=== PATIENT | female | born 1990 | race Caucasian/White ===

== ENCOUNTER 2017-05-07 13:44 | Observation (INO) | payer OTHER ==
[2017-05-07] MEDS ORDERED: PROMETRIUM200 MG (14:18)
--- NOTE | 2017-05-07 16:20 | NUR ---
05/07/17 1620 Zonia Ornelas 1606 PT ARRIVED IN PACU WITH ORAL AIRWAY IN PLACE. REPORT FROM ANESTHESIA. 1610 ORAL AIRWAY REMOVED. PT TALKING TO STAFF. AT BEDSIDE.
--- NOTE | 2017-05-08 18:04 | OR ---
[facility] [address] [place] [address] Signed DATE OF OPERATION: 05/07/2017 SURGEON: Toney Beck MD PREOPERATIVE DIAGNOSIS: Incompetent cervix with bulging membranes. POSTOPERATIVE DIAGNOSIS: Incompetent cervix with bulging membranes. PROCEDURE: Cerclage, Zack type. PETROLEUM ENGINEERING PROFESSOR: Dr. Vallecillo. ANESTHESIA: General. ESTIMATED BLOOD LOSS: 10 mL. COMPLICATIONS: None. DRAINS: Elias to bladder. FINDINGS: Cervix 4 cm, soft with bulging membranes. Coming from the os. Normal vagina. No discharge. No bleeding. DESCRIPTION OF PROCEDURE: The patient was brought to the operating room, placed supine position. Attempt was made for spinal anesthesia, but could not be adequately done, so general anesthesia was obtained, the patient was then placed in the dorsal lithotomy position. Prepped and draped in usual sterile fashion except no vaginal prep . Elias catheter was placed in the bladder and the bladder filled with 250 mL of sterile water to help elevate the lower segment and hopefully elevate the membranes back in. The patient was placed in Trendelenburg to Electronically Signed By: TONEY BECK MD 05/08/17 1804 PATIENT NAME: DONNA CAMEJO OPERATIVE REPORT DATE OF : [birth year] REPORT #: [id number] PHYSICIAN: TONEY BECK MD PCP: TONEY BECK MD REPORT IS CONFIDENTIAL AND NOT TO BE RELEASED WITHOUT AUTHORIZATION [facility] [address] [place], [place] [address] Signed also help drop the bulging membranes in back up through the cervix. Weighted speculum was placed in the vagina and the anterior lip of the cervix was carefully grasped with a ring forceps. The cervix was grasped at 3 o'clock and 9 o'clock with a ring forceps and finally the posterior lip of the cervix could be seen and this was grasped with a ring forceps. There was still some membranes at the external os. So, a Elias catheter was very gently pushed through the cervix and the balloon inflated and this seem to hold the membranes up out of the way so that the cervix could be identified. The vagina was quite narrow, so the large needle of the Mersilene tape could not be brought in to the cervix, so a smaller Loose needle was used in the large needles cut off the Mersilene tape and passed through the eye of the small curved needle. The cervix was carefully inspected. The Mersilene tape was then placed from 7 o'clock to almost 9 o'clock in the right lower quadrant of the cervix and the tape pulled through after removing the 9 o'clock ring forceps. The tape was pulled through and then additional bite taken from 10 o'clock to 11:00 o'clock. Each bite was taken as far back towards the internal os and the ring forceps removed as needed for visualization. This could be reached with the one end of the tape up near 11 o'clock. The left side was done in similar fashion placing the needle through from 5 o'clock to 3 o'clock, just passed 3 o'clock and then again from 2 o'clock up to 12 o'clock. This side was easier to get closer to the endocervix, so the patient's right side still had a small area of anterior cervix, so the 3rd bite was taken from 11-12 o'clock further up near the internal os and the sutures now meeting near at 12 o'clock. The needles were removed and the suture began to be tightened. Once it was tightened part way the Elias catheter balloon that was in the cervix was deflated and the Elias catheter removed from the cervix, and as this was removed the stitch was tightened further to close the cervix without undue tension. The cervix was observed and noted to have good closure with no membranes present. No leaking fluid. Three additional knots were then placed in the tape to hold the suture in place, in the ends of the tape cut along so that could be identified again. The vagina was then irrigated and carefully examined and noted to have good hemostasis. The cervix did show good closure and appeared to be thicker and there is no bulging or bleeding and no leaking fluid. At this point, all instruments were removed from the vagina. The patient tolerated the procedure well and went to recovery room in good condition. The sponge, needle, and instrument counts were correct at the end of procedure. Toney Beck MD Electronically Signed By: TONEY BECK MD 05/08/17 1804 PATIENT NAME: DONNA CAMEJO OPERATIVE REPORT DATE OF : [birth year] REPORT #: [id number] PHYSICIAN: TONEY BECK MD PCP: TONEY BECK MD REPORT IS CONFIDENTIAL AND NOT TO BE RELEASED WITHOUT AUTHORIZATION [address] [address] Signed [facility]/HANNAH /[id number] Copies: ~ Electronically Signed By: TONEY BECK MD 05/08/17 1804 PATIENT NAME: DONNA CAMEJO OPERATIVE REPORT DATE OF : [birth year] REPORT #: [id number] PHYSICIAN: TONEY BECK MD PCP: TONEY BECK MD REPORT IS CONFIDENTIAL AND NOT TO BE RELEASED WITHOUT AUTHORIZATION
== END 2017-05-08 18:35 | disposition home or self-care (01) ==
LOC: FBCO 13:44 → FBC 14:23
PROVIDERS: ADMIT General Practice
PROC: 0UVC7ZZ Restriction of Cervix, Via Natural or Artificial Opening (ICD-10-PCS; principal; 2017-05-07 14:17)
DX: O34.32 Maternal care for cervical incompetence, second trimester (principal); Z3A.21 21 weeks gestation of pregnancy
CPT/HCPCS: 00948; 76815; 81001; 85027; 87088; 87653; G0378; J0330; J2550; J2704; J2765; J3010

== ENCOUNTER 2017-11-05 06:24 | Inpatient (IN) | payer OTHER ==
[~2017-11-05] VITALS: Ht 170.2 cm; Wt 151.1 kg
[~2017-11-05 06:24] MED LIST: IBUPROFEN600 MG PO; NORCO 5-325 TA1 EACH PO; PAXIL10 MG PO; PROMETRIUM200 MG; ZOFRAN ODT4 MG PO
--- NOTE | 2017-11-05 08:48 | NUR ---
REPORT FROM FREDIS ANDERSEN IN E.D. AT THIS TIME.
--- NOTE | 2017-11-05 09:00 | NUR ---
PT TO ROOM 114 AT THIS TIME. PT ALERT AND ORIENTED CESAR SIGNIFICANT AT BEDSIDE. PT REPORTS NO PAIN OR NAUSEA AT THIS TIME. SHE RECIEVED PAIN AND NAUSEA MEDICATIONS IN E.D. EDUCATION FOLDER PROVIDED
[2017-11-05] MEDS ORDERED: FLUOXETINE HCL40 MG PO (11:29)
[2017-11-05] MEDS ORDERED: LORAZEPAM0.5 MG PO (11:30)
--- NOTE | 2017-11-05 11:36 | NUR ---
PT OFF THE UNIT TO SURGERY AT THIS TIME.
--- NOTE | 2017-11-05 13:33 | NUR ---
11/05/17 Ashely3 Angeli Cardenas 4808-PATIENT ARRIVED TO PACU ON 6L MASK O2 SAT 100% PATIENT REACTIVE TO VOICE DENIES PAIN. DROWSY. RR EVEN. SR. 3 LAP SITES TO ABDOMEN RIA DRAIN SITE COVERED BY HELIOTHERAPIST DRESSING CDI. RIA DRAIN HAS SCANT AMT OF LIGHT SEROUSSANGUINOUS DRAINAGE.
--- NOTE | 2017-11-05 14:10 | NUR ---
PT HAS BEEN TAKEN TO SURGERY. WILL FOLLOW SHE RETURNS
--- NOTE | 2017-11-05 14:39 | NUR ---
PT BACK FROM SURGERY AND WAS ABLE TO SCOOT SELF OVER TO BED. SLIGHTLY NAUSEA AND PAINFUL UPON MOVEMENT. FIANCE IN ROOM. PT ANSWERS QUESTIONS APPROP. VS STABLE. SITES INTACT WITH MINIMAL DRAINAGE IN DRAIN.
--- NOTE | 2017-11-05 15:29 | NUR ---
PT SLEEPING/SNORING OXYGEN SATURATION 99% ON 2L. SIGNIFICANT OTHER AT BEDSIDE.
--- NOTE | 2017-11-05 16:11 | NUR ---
PT UP TO BEDSIDE COMMODE, TOLERATED ACTIVITY WELL. HAD TO RE-ENFORCE RIGHT LUQ LAP SITE WITH GUAZE DUE TO DRAINAGE AT SITE
--- NOTE | 2017-11-05 16:59 | NUR ---
PT TOLERATED PUDDING AND JELLO WITH NO NAUSEA HAS BEEN UP TO VOID TOLERATED WELL. ADMINISTERED 1 TAB PERCOCET PO PRN FOR 5/10 PAIN. SIGNIFICANT OTHER AT BEDSIDE
--- NOTE | 2017-11-05 17:01 | NUR ---
PT HAD LAP EDELMIRA THIS AFTERNOON, HAS RIA DRAIN RUQ DRAINING SMALL AMOUNT OF SS FLUID. LAPS SITES HAVE SMALL AMOUNT OF DRAINAGE ALSO SS. PT TOLERATING PO WELL NOW NO NAUSEA. ADMINISTERED PO PERCOCET 1 TAB. RATES PAIN 5/10 SHE HAS LOW TOLERANCE FOR NARCOTIC MEDICATIONS. HER V/S STABLE. ON ROOM AIR. SCDS ON WHILE IN BED.
--- NOTE | 2017-11-05 17:23 | NUR ---
PT REPORTS PAIN IS TOLERABLE AT THIS TIME
--- NOTE | 2017-11-05 18:20 | NUR ---
PATIENT IN BED WATCHING TV. FAMILY BEDSIDE. FRESHWATER GIVEN. CALL LIGHT IN REACH NO FURTHER NEEDS AT THIS TIME.
--- NOTE | 2017-11-05 18:35 | NUR ---
PT REPORTS PAIN IS TOLERABLE, SHE REPORTS NOT FEELING A LOT OF DIFFERENCE SINCE PERCOCET ADMINISTERED AT 1640. ADMINISTERED 600MG MOTRIN AT THIS TIME PO PRN FOR 5/10 PAIN AT THE ABD POST OP LAP EDELMIRA
--- NOTE | 2017-11-05 19:34 | NUR ---
SHIFT CHANGE REPORT ASSESSMENT OF UMBILICUS INCISION...REOMVED GAUZE DUE TO DRAINAGE STERI STRIPES X2 HAD CAME LOOSE CALLED NOTIFIED THAT RN HAD PLACED NEW STERI STRIPE TO RE-ENFORCE MD SAID OK TO LEAVE OFF IF MORE COME OFF DUE TO DRAINAGE.
--- NOTE | 2017-11-05 19:35 | NUR ---
FINISHING SHIFT REPORT WITH NATHALY CARL. ABD LAP SITES AND LOOK GOOD. RIA DRAINIG SEROSANGUINOUS DRAINAGE, BUT NOT MUCH.
--- NOTE | 2017-11-05 20:03 | NUR ---
1PA SBA TO THE BATHROOM AND BACK TO BED. PATIENT STATED DID NOT NEED OF ANYTHING ELSE AT THIS MOMENT.
--- NOTE | 2017-11-05 21:36 | NUR ---
ROUNDED CHARGE. PATIENT IS RESTING IN BED WATCHING TV. FIANCE AT THE BEDSIDE. PATIENT DENIES ANY PAIN OR NAUSEA. NO COMMENTS, QUESTIONS, OR CONCERNS. NO NEEDS NOTED. CALL LIGHT IN REACH.
--- NOTE | 2017-11-05 22:54 | NUR ---
PATIENT STARTING TO HAVE 6 OF 10 ABD PAIN AND WAS GIVEN 2 7.5/325MG PERCOCET. PATIENT AMBULATING FINE TO THE REST ROOM. IV PATENT AND RUNNING WELL. BOWEL TONES HYPOACTIVE, BUT LUNGS CLEAR.
--- NOTE | 2017-11-06 00:08 | NUR ---
PATIENT GIVEN 600MG IBUPROFEN FOR 7/10 OF RIGHT ABD PAIN NEAR THE RIA SITE. WARM PACK APPLIED AND PATIENT FEELING BETTER AT THIS TIME. SIGNIFICANT OTHER PRESENT SLEEPING ON THE SOFA.
--- NOTE | 2017-11-06 02:06 | NUR ---
CHECKED ON PATIET PAIN IS MUCH DECREASED AFTER WARMTH AND MOTRIN GIVEN. 2/10 PAIN, LIKE STOMACH CRAMMPS EXPLAINED BY PATIENT. STILL DRIED BLOOD AROUND RIA DRESSING SITE, BUT NOTHING NEW. IV STILL INFUSING WNL AND PATIENT WAS ABLE TO GET SOME SLEEP.
--- NOTE | 2017-11-06 07:36 | NUR ---
REPORT RECEIVED FROM NATHALY SOLIS. PT AND ABHILASH AWAKE AND HOPING TO GO HOME THIS MORNING. PAIN WELL CONTROLLED. LAP SITES DRY AND CRUSTY. RIA SITE REINFORCED BUT APPEARS TO HAVE ONLY DRIED BLOOD. MINIMAL DRAINAGE IN DRAIN. PT REPORTS PASSING GAS.
--- NOTE | 2017-11-06 08:13 | NUR ---
PT ASKED IF SHE COULD LEAVE THE SCDS OFF FOR A BIT THEY ARE ITCHING AND SHE IS UP WALKING AROUND THE ROOM. ALSO WANTED TO BE SL FOR CLEANING UP IN THE RESTROOM. BOTH OFF FOR NOW. PT DENIES FURTHER CONCERNS.
--- NOTE | 2017-11-06 09:19 | NUR ---
pt is sitting up in chair, family is here with her. pt has no needs at this time. call light within reach.
--- NOTE | 2017-11-06 09:27 | OR ---
[facility] [address], [place] [address] Signed DATE OF OPERATION: 11/05/2017 SURGEON: Luis Gonsales MD PREOPERATIVE DIAGNOSES: 1. Acute calculous cholecystitis. 2. Morbid obesity. BMI 52.2. POSTOPERATIVE DIAGNOSES: 1. Acute calculous cholecystitis. 2. Morbid obesity. BMI 52.2. PROCEDURE: 1. Laparoscopic cholecystectomy with intraoperative cholangiogram, prolonged, complicated, difficult. 2. Surgeon-directed fluoroscopy. ANESTHESIA: General endotracheal. ANESTHESIOLOGIST: Yadi Clement CRNA and local 20 mL of Marcaine, 0.25% with epinephrine. INDICATION: This 26-year-old, morbidly obese person was seen in the emergency room early this morning following a recurrent bout of right upper abdominal pain. She was thoroughly evaluated by Dr. Bullard, and found to have elevated white count to 13.2. Two liver enzymes were elevated and abdominal tenderness in the right subcostal area. She had been seen on the [address] Davila in the emergency room for similar symptoms, which seem to resolve somewhat promptly and an ultrasound at that time confirmed the findings of a gallbladder with stones. There was also incidentally noted to be a probable hemangioma of the right lobe of the liver. Given her recurrent symptoms, ongoing tenderness, elevated white count, and so forth she has acute cholecystitis, calculous type, and therefore, has been admitted for further evaluation and treatment. She has been fluid resuscitated, given intravenous antibiotics, and other measures and is to undergo prompt cholecystectomy at this time. She understands as does her fiance, Electronically Signed By: LUIS GONSALES MD 11/06/17 0927 PATIENT NAME: DONNA CAMEJO OPERATIVE REPORT DATE OF : [birth year] REPORT #: [id number] PHYSICIAN: LUIS GONSALES MD PCP: TIM LEE DO REPORT IS CONFIDENTIAL AND NOT TO BE RELEASED WITHOUT AUTHORIZATION [facility] [address], [place] [address] [address] Mr. Fuentes, the risk of bleeding, infection, bile duct injury, bile leak, need for open procedure, need for common duct exploration and other unforeseen complications and wished to proceed. FINDINGS: She was quite morbidly obese, which made the operation prolonged, complicated, and difficult, but it was accomplished safely in a laparoscopic approach. The gallbladder was inflamed with omental adhesions to its undersurface. Intraoperative cholangiography showed no sign of filling defect or other abnormality. The cystic duct was reasonably generous in length. The gallbladder once opened showed multiple small yellow gallstones. The liver had mild fatty infiltration. There were no other findings of concern. DESCRIPTION OF PROCEDURE: The patient was brought to the operating room, given a general endotracheal anesthetic. Preoperative antibiotic Ancef was given. Sequential compression device stockings used and heparin subcutaneously administered. The abdomen was prepared with chlorhexidine solution after safe general endotracheal anesthesia was induced. An infraumbilical incision was made using an open Mark cannula technique the abdomen was entered without problem though she had a very thick abdominal wall pannus. Pneumoperitoneum was achieved to a level of 14 mmHg of carbon dioxide gas. Intraabdominal inspection showed no sign of ascites, or carcinomatosis. The liver is fatty, infiltrated, and the gallbladder was obscured by omentum over the right lobe of the liver. There was no visible hemangioma of the liver notably. Three additional trocars were placed in usual configuration in the subxiphoid, right midclavicular, and right anterior axillary line. This allowed for unfurling of the omentum revealing the underlying subacutely inflamed gallbladder. The gallbladder was elevated, and omental adhesions to it were taken down with blunt electrocautery dissection. Sequential elevation of the liver was ultimately accomplished allowing for further dissection in the infundibulum. The infundibulum was grasped, and elevated, and using blunt electrocautery dissection the triangle of Calot was dissected free. With meticulous care, the cystic duct was fully identified. A small cystic arterial branch was clipped and subsequently divided. Ultimately, a clip was applied across gallbladder cystic duct junction and a transverse choledochotomy made in the cystic duct. Retrograde milking of the cystic duct showed clear bile. Using an Canseco type cholangiocatheter, intraoperative cholangiography was undertaken showing free flow of contrast into the biliary tree with prompt emptying into the duodenum. There was no sign of biliary anomaly, filling defect or other abnormality. Electronically Signed By: LUIS GONSALES MD 11/06/17 0927 PATIENT NAME: DONNA CAMEJO OPERATIVE REPORT DATE OF : [birth year] REPORT #: [id number] PHYSICIAN: LUIS GONSALES MD PCP: TIM LEE DO REPORT IS CONFIDENTIAL AND NOT TO BE RELEASED WITHOUT AUTHORIZATION [facility] [address] [place] [id number] Signed Catheter was removed. The cystic duct was clipped with three clips. The cystic duct remnant was transected and the gallbladder was then dissected free in a retrograde fashion. A few clips were used to small subvesical arterial branches. The gallbladder was placed in an endobag and extracted through the infraumbilical port site opened on the back table by the circulating nurse, and found to have chronic and subacute inflammatory changes with small yellow gallstones. Irrigation was undertaken in subhepatic space. There was no sign of bile leak, or ongoing bleeding, but to be on the safe side given her obesity and so forth, a 7 mm flat Celestine drain was placed in the subhepatic space. This was placed under direct visualization of course. It was secured to the skin with nylon suture and brought out through inferior right-sided 5 mm trocar site port. The trocars were removed under direct visualization showing no sign of bleeding. The infraumbilical fascial incision was closed with multiple interrupted 0 Vicryl sutures. A 20 mL of 0.25% Marcaine with epinephrine was injected locally for postoperative analgesic benefit. Irrigation was undertaken. Incision and skin closed with interrupted 3-0 Vicryl. Steri-Strips were applied. The patient was ultimately extubated and transferred to recovery room in good condition having suffered no complication. The operation was rather prolonged, complicated, difficult based on her morbid obesity. It was accomplished safely. MD JENN Lopez/DENILSON /[id number] cc: Tim Lee DO [facility] Shelton Bullard MD Electronically Signed By: LUIS GONSALES MD 11/06/17 0927 PATIENT NAME: DONNA CAMEJO OPERATIVE REPORT DATE OF : [birth year] REPORT #: [id number] PHYSICIAN: LUIS GONSALES MD PCP: TIM LEE DO REPORT IS CONFIDENTIAL AND NOT TO BE RELEASED WITHOUT AUTHORIZATION [facility] [address], [place] [address] Signed Copies: TIM LEE PHONG POWELL, WILLIAM S MD ~ Electronically Signed By: LUIS GONSALES MD 11/06/17 0927 PATIENT NAME: DONNA CAMEJO OPERATIVE REPORT DATE OF : [birth year] REPORT #: [id number] PHYSICIAN: LUIS GONSALES MD PCP: TIM LEE DO REPORT IS CONFIDENTIAL AND NOT TO BE RELEASED WITHOUT AUTHORIZATION
--- NOTE | 2017-11-06 09:27 | HP ---
[facility] [address] [place], [place] [address] Signed ADMISSION DATE: 11/05/2017 REASON FOR ADMISSION: Acute calculous cholecystitis. HISTORY: This morbidly obese 151.05 kg, BMI 52.2, white woman presented to the emergency room for the second time this morning and evaluated by Dr. Pandey for right upper abdominal pain, radiating into the posterior subscapular area. She had been seen in the emergency room on the 28 of October and evaluated by Dr. Black. At that time, she was thought to have biliary colic and a gallbladder ultrasound at that time showed gallstones. Liver enzymes and CBC and so forth said to be normal. Since that time, she had been advised to align herself with a primary care provider to arrange for a surgical referral. She was put on a wait list [facility] from what I gather. The patient has seen Dr. Lee in the past, it is noted. He has treated her for anemia with iron replacement therapy. Source of anemia was never known. Her evaluation today shows a change of situation in that she had nausea and vomiting associated with right upper abdominal pain. Her white count was elevated to 13.9, hematocrit 41.7, and platelets 236,000. Chem profile essentially normal. The glucose elevated at 153. AST is elevated to 86, ALT 270, alkaline phosphatase normal at 108, and bilirubin normal at 0.6. Beta-hCG was negative. Her last menstrual period was in May. PAST MEDICAL HISTORY: Does include uterine incompetence during , requiring emergency cerclage and subsequent spontaneous delivery of a nonviable fetus of 23 weeks. She was managed at that time by Dr. Beck and Dr. Vallecillo. Her obstetric intervention with Dixon cerclage placement was on May 07, 2017. MEDICATIONS: Currently include [place], ibuprofen, Zofran, and Paxil. She does admit to mixed depression and anxiety disorder. Electronically Signed By: LUIS GONSALES MD 11/06/17 0927 PATIENT NAME: DONNA CAMEJO HISTORY AND PHYSICAL DATE OF : [birth year] REPORT #: [id number] PHYSICIAN: LUIS GONSALES MD PCP: MAKENZIE LEE DO REPORT IS CONFIDENTIAL AND NOT TO BE RELEASED WITHOUT AUTHORIZATION [facility] [address] [place], [place] [address] Signed ALLERGIES: She has allergy to latex. REVIEW OF SYSTEMS: The symptoms of right upper abdominal pain have improved since admission and fluid administration. She has been started already on Ancef and Pepcid under my direction. SOCIAL HISTORY: She is unmarried. She is accompanied by her fiance, Mr. Fuentes. father well. She has no children. She has had one time with demise as described. She lives in [facility]. 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 PHYSICAL EXAMINATION: GENERAL: Pleasant, well groomed, but very obese white woman, who looks to be in only mild discomfort at this time. HEENT: Mucous membranes reasonably moist. Trachea is midline. Mallampati is 4. She has a favorable airway characteristics, otherwise. CHEST: Clear. HEART: Regular without murmur. ABDOMEN: Quite obese, but soft and there is mild tenderness in the right subcostal area. There is no sign of ascites. EXTREMITIES: No clubbing, cyanosis, or edema. She does have a tattoo on the right foot. LABORATORY STUDIES: Show an elevated white count of 13.9, as previously described. Chem profile as previously noted. A urinalysis which was negative. She did have 10 white cells per high-power field and 2+ bacteria, however. Her beta-hCG is negative. IMAGING STUDIES: Included ultrasound on October 28, 2017, this showed a gallbladder that showed stones and to my examination thickening. Additionally, there is considered to be a probable hemangioma at the medial aspect of the right lobe of the liver, not in continuity with the gallbladder itself. ASSESSMENT: The patient has acute calculous cholecystitis as well as morbid obesity. Fluid resuscitation is underway and antibiotics have been given. I discussed with her the pathophysiology of this problem and recommendation of treatment to include Electronically Signed By: LUIS GONSALES MD 11/06/17 0927 PATIENT NAME: DONNA CAMEJO HISTORY AND PHYSICAL DATE OF : [birth year] REPORT #: [id number] PHYSICIAN: LUIS GONSALES MD PCP: MAKENZIE LEE DO REPORT IS CONFIDENTIAL AND NOT TO BE RELEASED WITHOUT AUTHORIZATION [address] [address] Signed cholecystectomy preferred by laparoscopic approach. The risks of bleeding, infection, bile duct injury, need for open procedure, need for common duct exploration, either open or laparoscopic were all reviewed in detail. She understands and wished to proceed. MD JENN Lopez/HANNAHL /[id number] cc: DR. MESFIN Pandey MD Copies: TIFFANIE PANDEY MD ~ Electronically Signed By: LUIS GONSALES MD 11/06/17 0927 PATIENT NAME: DONNA CAMEJO HISTORY AND PHYSICAL DATE OF : [birth year] REPORT #: [id number] PHYSICIAN: LUIS GONSALES MD PCP: MAKENZIE LEE DO REPORT IS CONFIDENTIAL AND NOT TO BE RELEASED WITHOUT AUTHORIZATION
[2017-11-06] MEDS ORDERED: OXYCODON-ACETA1 EAC2 PO (09:51)
[2017-11-06] MEDS ORDERED: CHROMIUM400 MCG PO (10:28)
[2017-11-06] MEDS ORDERED: LOTRISONE CREAM15 GM TOP (10:29)
[2017-11-06] MEDS ORDERED: IRON325 M1 PO (10:29)
[2017-11-06] MEDS ORDERED: DICYCLOMINE HCL20 MG PO (10:29)
[2017-11-06] MEDS ORDERED: VITAMIN D1000 UNI1 PO (10:30)
--- NOTE | 2017-11-06 10:34 | NUR ---
MED REC COMPLETE
--- NOTE | 2017-11-06 12:29 | NUR ---
MET PT NATHALY CORNELL WAS PUSHING HER OUT IN CHAIR FOR DC. SHE WAS ALERT, ORIENTED AND MENTIONED SEVERAL TIMES HAPPY TO BE DC'D. PT MENTIONED THAT SHE FEELS SO MUCH BETTER, THANKFUL FOR THE HELP SHE HAS RECEIVED. EXTENDED A BLESSING
== END 2017-11-06 10:50 | disposition home or self-care (01) | DRG 418 ==
LOC: ED 06:24 → MS 06:26
PROVIDERS: ADMIT Surgery
PROC: BF101ZZ Fluoroscopy of Bile Ducts using Low Osmolar Contrast (ICD-10-PCS; 2017-11-05)
PROC: 0FT44ZZ Resection of Gallbladder, Percutaneous Endoscopic Approach (ICD-10-PCS; principal; 2017-11-05 12:00)
DX: K80.00 Calculus of gallbladder with acute cholecystitis without obstruction (principal); Z68.43 Body mass index [BMI] 50.0-59.9, adult; E66.01 Morbid (severe) obesity due to excess calories; F41.9 Anxiety disorder, unspecified; F17.290 Nicotine dependence, other tobacco product, uncomplicated; F32.89 Other specified depressive episodes; K76.0 Fatty (change of) liver, not elsewhere classified; Z91.040 Latex allergy status; Z79.1 Long term (current) use of non-steroidal anti-inflammatories (NSAID); Z79.891 Long term (current) use of opiate analgesic; Z79.899 Other long term (current) drug therapy; Z97.5 Presence of (intrauterine) contraceptive device
CPT/HCPCS: 00790; 74300; 80053; 81001; 83690; 84703; 85025; 96361; 96374; 96375; 96376; 99284; 99406; G0378; J0330; J0690; J1100; J1170; J1644; J1885; J2250; J2270; J2405; J2550; J2704; J3010; J7030; J7120; Q9967

== ENCOUNTER 2017-11-15 02:42 | Emergency (ER) | payer OTHER ==
[~2017-11-15] VITALS: Ht 170.2 cm; Wt 151.1 kg
[~2017-11-15 02:42] MED LIST changes: +CHROMIUM400 MCG PO; +DICYCLOMINE HCL20 MG PO; +FLUOXETINE HCL40 MG PO; +IRON325 M1 PO; +LORAZEPAM0.5 MG PO; +LOTRISONE CREAM15 GM TOP; +OXYCODON-ACETA1 EAC2 PO; +VITAMIN D1000 UNI1 PO
--- OUTSIDE RECORDS SUMMARY | 2017-11-15 02:46 | XMS ---
PreManage Notification: DONNA CAMEJO Security Supervisor Rework Events No recent Security Events currently on file CRITERIA MET - [facility] - 2 Visits in 30 Days CARE PROVIDERS MAKENZIE LEE Family Medicine: Sports Medicine 11/06/2017-Current PHONE: [phone] [facility] PH[facility]: Unknown Bertha has no Care Guidelines for this patient. EMargo VISIT COUNT (12 MO.) [address] [place] [address] TOTAL 3 NOTE: Visits indicate total known visits. ED/UCC VISIT TRACKING (12 MO.) 11/15/2017 02:42 BR[facility]IE [facility] TYPE: Emergency COMPLAINT: - BACK PAIN/NON INJURY 11/05/2017 06:25 [facility] [place] TYPE: Emergency COMPLAINT: - ABD/BACK PAIN/NO INJURY 10/28/2017 16:18 BR[facility] [place] TYPE: Emergency COMPLAINT: - ABD PAIN DIAGNOSES: - Latex allergy status - Nicotine dependence, unspecified, uncomplicated - Right upper quadrant pain - Other penitentiary (current) drug therapy - Calculus of gallbladder and bile duct without cholecystitis without obstruction INPATIENT VISIT TRACKING (12 MO.) 05/21/2017 10:36 Kash Driscoll [place] TYPE: Womens Services DIAGNOSES: - labor [email or web address]
[2017-11-15] MEDS ORDERED: NORCO 5-325 TA1 EACH PO (05:32)
[2017-11-15] MEDS ORDERED: FLOMAX0.4 MG PO (05:32)
== END 2017-11-15 05:52 | disposition home or self-care (01) ==
LOC: ED 02:42
DX: N20.1 Calculus of ureter (principal); E66.9 Obesity, unspecified; Z91.040 Latex allergy status; Z79.899 Other long term (current) drug therapy
CPT/HCPCS: 74177; 80053; 81001; 84703; 85025; 96374; 96375; 99284; J1885; J2405; Q9967

== ENCOUNTER 2019-11-17 23:23 | Emergency (ER) | payer BC ==
[~2019-11-17] VITALS: Ht 170.2 cm; Wt 138.8 kg
[~2019-11-17 23:23] MED LIST changes: +FLOMAX0.4 MG PO
[2019-11-18] MEDS ORDERED: PRENATA CHEWAB1 EACH PO
[2019-11-18] MEDS ORDERED: QVAR REDIHALE10.6 G1 (00:01)
[2019-11-18] MEDS ORDERED: VENTOLIN HFA18 GM INH (00:01)
== END 2019-11-18 02:22 | disposition home or self-care (01) ==
LOC: ED 23:23
DX: R10.9 Unspecified abdominal pain (principal); R31.9 Hematuria, unspecified; E66.9 Obesity, unspecified; F32.9 Major depressive disorder, single episode, unspecified; F41.9 Anxiety disorder, unspecified; Z87.891 Personal history of nicotine dependence; Z88.8 Allergy status to other drugs, medicaments and biological substances; Z91.040 Latex allergy status; Z79.899 Other long term (current) drug therapy
CPT/HCPCS: 80053; 81001; 85025; 96374; 96375; 99284-25; J1170; J2405

== ENCOUNTER 2020-05-22 09:28 | Inpatient (IN) | payer BC ==
[~2020-05-22] VITALS: Ht 170.2 cm; Wt 150.6 kg
[~2020-05-22 09:28] MED LIST changes: +PRENATA CHEWAB1 EACH PO; +QVAR REDIHALE10.6 G1; +VENTOLIN HFA18 GM INH
--- NOTE | 2020-05-23 09:43 | NUR ---
05/23/20 0943 Angeli Cardenas 0931-PATIENT ARRIVED BACK TO ROOM 105 FOR PACU RECOVERY TIME. PATIENT AWAKE DENIES PAIN OR NAUSEA. SPINAL LEVEL AT T10. YVETTE PADS PLACED BENEATH PATIENT LIGHT RUBRA DRAINAGE. FUNDUS 1 ABOVE UMBILICUS FIRM. DAD AND BABIES AT BEDSIDE. IVF INFUISNG TO RIGHT ARM LR WITH 30 PITOCIN. SR 0937-MOM HOLDING BABY TO BREAST. DENIES PAIN OR NAUSEA. 0943-BOTH BABIES TO MOM.
--- NOTE | 2020-05-24 16:41 | PATH ---
[facility] [address] [place], [place] [address] Signed SPECIMEN(S): A BILATERAL FALLOPIAN TUBES SPECIMEN SOURCE: A. BILATERAL FALLOPIAN TUBES CLINICAL HISTORY: Bilateral tubal ligation. FINAL PATHOLOGIC DIAGNOSIS: Fallopian tubes, bilateral, ligation: - Two non-fimbriated segments of fallopian tubes. - Complete cross-section of each tube fragment is identified. NAL:cml:C2NR MICROSCOPIC EXAMINATION: Histologic sections of all submitted blocks are examined by light microscopy. These findings, together with the gross examination, support the pathologic diagnosis. GROSS DESCRIPTION: The specimen, labeled "SH," and designated on the requisition "bilateral fallopian tubes," is received in formalin and consists of two undesignated, non-fimbriated segments of fallopian tube (1.5 cm in length by 1.0 cm in diameter and 1.5 cm in length by 0.7 cm in diameter). One segment is inked blue arbitrarily and both segments are submitted entirely in cassette A1. The specimen will be cut at [facility] (under the direct supervision of a pathologist) The Gross Description was prepared using a voice recognition system. The report was reviewed for accuracy; however, sound-alike word errors, addition and/or deletions may occur. If there is any question about this report, please contact Client Services. PERFORMING LABORATORY: The technical component was performed by [employer], [address] [place] [id number] (Lead Pharmacy Technician: Vanessa Concepcion MD; CLIA# [id number]). [facility] [address] [address] (CLIA# [id number]). Diagnostician: Esperanza Olson MD PATIENT NAME: DONNA PÉREZ PATHOLOGY DATE OF : [birth year] REPORT #: [id number] PHYSICIAN: JAJA PATHOLOGY PCP: ANNA AGUILLON REPORT IS CONFIDENTIAL AND NOT TO BE RELEASED WITHOUT AUTHORIZATION [address] [address] Signed Pathologist Electronically Signed 05/24/2020 Copies: ~ PATIENT NAME: DONNA PÉREZ PATHOLOGY DATE OF : [birth year] REPORT #: [id number] PHYSICIAN: JAJA PATHOLOGY PCP: ANNA AGUILLON REPORT IS CONFIDENTIAL AND NOT TO BE RELEASED WITHOUT AUTHORIZATION
--- NOTE | 2020-05-25 09:17 | PR ---
[facility] [address] [facility] [place], [place] [address] Signed PP Progress Notes Datetime Report Generated by CPN: 05/25/2020 09:17 SUBJECTIVE: [id number] Pain: Within Normal Limits Nausea/Vomiting: Denies Vital Signs: [id number] Vital Signs: Reviewed; Within Normal Limits Notable Details: PP Hgb/Hct = 10.4/32.1 EXAM: Ongoing Abdomen/Uterus: Normal Lochia: Normal Extremities: Normal Incision: Normal IMPRESSION/PLAN/PROCEDURES: [id number] Impression: Normal Progression Plan: Continue Present Management Procedures: None (Annotations: Data stored by [facility] on behalf of user) Progress Notes: Doing well, without complaint, toelrating food well, up moving without problem. Signing Physician: Sae Solis MD Copies: ~ *Electronically Signed* 05/25/20916 SAE SOLIS MD PATIENT NAME: DONNA PÉREZ PROGRESS NOTE DATE OF : [birth year] PHYSICIAN: SAE SOLIS MD RPT #: [id number] REPORT IS CONFIDENTIAL AND NOT TO BE RELEASED WITHOUT AUTHORIZATION
--- NOTE | 2020-05-25 09:18 | PR ---
[facility] [address] [place] [address] Signed PP Progress Notes Datetime Report Generated by CPN: 05/25/2020 09:18 SUBJECTIVE: [id number] Pain: Within Normal Limits Nausea/Vomiting: Denies Vital Signs: [id number] Vital Signs: Reviewed; Within Normal Limits Notable Details: PP Hgb/Hct = 10.4/32.1 EXAM: Ongoing Abdomen/Uterus: Normal Lochia: Normal Extremities: Normal Incision: Normal IMPRESSION/PLAN/PROCEDURES: [id number] Impression: Normal Progression Plan: Discharge Procedures: None Progress Notes: Doing well, without complaint, ready to go home. Signing Physician: Sae Solis MD Copies: ~ *Electronically Signed* 05/25/20917 SAE SOLIS MD PATIENT NAME: DONNA PÉREZ PROGRESS NOTE DATE OF : 90 PHYSICIAN: SAE SOLIS MD RPT #: [id number] REPORT IS CONFIDENTIAL AND NOT TO BE RELEASED WITHOUT AUTHORIZATION
--- NOTE | 2020-05-25 09:40 | OR ---
[address] [address] Signed DATE OF OPERATION: 05/23/2020 SURGEON: Toney Beck MD Patient of Dr. Beck. PREOPERATIVE DIAGNOSES: 1. . 2. Dichorionic diamniotic twins. 3. Previous classical . 4. Sterilization. 5. Status post cerclage placement. POSTOPERATIVE DIAGNOSES: 1. . 2. Dichorionic diamniotic twins. 3. Previous classical . 4. Sterilization. 5. Status post cerclage placement. PROCEDURE: Repeat low transverse segment section, delivery of twin , bilateral tubal ligation, and cerclage removal of 2 stitches. WELD ENGINEER: Dr. Saunders. ANESTHESIA: Spinal. ESTIMATED BLOOD LOSS: 750 mL. COMPLICATIONS: Portion of cerclage suture still in place. DRAINS: Elias to bladder. FINDINGS: Electronically Signed By: TONEY BECK MD 05/25/20 0940 PATIENT NAME: DONNA PÉREZ OPERATIVE REPORT DATE OF : [birth year] REPORT #: [id number] PHYSICIAN: TONEY BEKC MD PCP: ANNA AGUILLON REPORT IS CONFIDENTIAL AND NOT TO BE RELEASED WITHOUT AUTHORIZATION [address] [address] Signed Baby A, live male infant, Apgars 9 and 9, weight 6 pounds 4 ounces, in breech presentation. Baby B, female, Apgars 8 and 9. Weight 5 pounds 9 ounces in breech position. Large twins. Uterus, normal tubes and ovaries bilateral. Cervix was soft, thick with 2 Ethibond stitches placed high on the cervix with a knot both anterior and a large number of knots in the tag with loop of the cerclage difficult to visualize. DESCRIPTION OF PROCEDURE: The patient was brought into the operating room, placed in supine position. After adequate spinal anesthesia was obtained, was placed in a dorsal lithotomy position. Weighted speculum was placed in the vagina and a Cherokee placed in the top of the vagina. The cervix identified and the 2 cerclage knots could be seen. There were a large number of knots with the tail approximately 4 cm of knots. The 1st tail was grasped with an Allis clamp and gently pulled upward and forward. The loop of the cerclage, however, was very difficult to see. A right angle clamp was used to try to slip the clamp inside the loop, so that only one suture would be cut and once this was in place, the very tip of the scissors were used to cut one suture, but apparently both sutures were cut because the knot came free, but the rest of the suture remained in the cervix. The 2nd suture knot was grasped and again the loop was very difficult to see and the right angle clamp used to place between the loop at the end of the knot, at the beginning of the knot, and was opened and this time just a single suture was caught in the entire loop was removed. An Allis clamp grasped gently grasped the cervix and the entire cervix was observed, but the rest of the suture could not be seen. This remained in place. Attention was then drawn to the abdomen. The patient was placed in supine position and prepped and draped in usual sterile fashion. Elias catheter was already in place in the bladder. A Pfannenstiel skin incision was made through the previous surgical scar using a scalpel. The subcutaneous tissue was dissected with the Bovie and the scalpel. The fascia was nicked with scalpel and extended in transverse fashion using curved scissors. The underlying abdominal musculature was bluntly and sharply from the fascia above and below the incision. The abdominal musculature was bluntly along the midline. The peritoneum was grasped, hemostats elevated, nicked with scissors and extended in vertical fashion using curved scissors. The Jack self-retaining retractor was inserted into the incision and tightened in place. The lower uterine segment was identified and noted to be quite wide and so scalpel was used to make the careful lisseth in the lower uterine segment and the incision extended in transverse fashion using finger dissection. The sac was ruptured during this and boy infant was noted to be in breech LSA presentation. The 's feet were brought out. The was backup, was delivered to the shoulders and arms individually delivered. Then, the head easily delivered through the incision. The cord was doubly clamped and cut and the infant passed off table in good condition awaiting nurse. Aluminum Can Collector was present for the delivery of both babies. A bulging bag of clear fluid for the 2nd twin was coming from the incision. This was opened with pickups with teeth and the female Electronically Signed By: TONEY BECK MD 05/25/20 0940 PATIENT NAME: DONNA PÉREZ OPERATIVE REPORT DATE OF : [birth year] REPORT #: [id number] PHYSICIAN: TONEY BECK MD PCP: ANNA AGUILLON REPORT IS CONFIDENTIAL AND NOT TO BE RELEASED WITHOUT AUTHORIZATION [place] [id number] Signed infant was also noted to be in breech LSA position. The infant's buttocks and legs were easily delivered with back up. Infant was delivered up to the shoulder where the arms were individually delivered and the head easily followed. This cord was doubly clamped and cut with a different clamp to identify A and B and the passed off table in good condition awaiting nurse and belt maker helper. The placentas were manually removed, noted to be separate with membrane between them and the uterine cavity explored a lap pad to remove any retained membranes. Uterus was quite boggy, so this was massaged. The patient was given extra Pitocin and then the incision again was closed. An angle stitch of 0 Monocryl was placed at one end of the incision and the other end was used to close the incision. The uterus was beginning to firm up, but was still slightly boggy, so Cytotec suppository was given. The uterine incision was then imbricated using 2nd running stitch of 0 Monocryl. Pelvis irrigated, suctioned, examined and the incision noted to have good hemostasis. At this point, the uterus was beginning to firm up well, so it was decided not to proceed at this point with any further action. A Chapin clamp was then used to grasp the midportion of the right fallopian tube and an avascular portion of the mesial salpinx opened with the Bovie. Two ligatures of 0 chromic suture were passed through the opening and tube tied proximal and distal to the clamp. Metzenbaum scissors were used to cut and remove the intervening segment of tube and then the 2 tubal pedicles cauterized with the Bovie. Good hemostasis was noted. The left side was done in similar fashion, grasping the tube with Chapin clamp, opening the mesosalpinx with the Bovie and passing 2 ligatures of 0 chromic suture through the opening and tying the tube proximal and distal to the clamp. Again, the portion of tube between the 2 ties were removed and the 2 pedicles cauterized with the Bovie and again good hemostasis was noted. At this point, uterus seemed to be firming up well, so incision and tubal sites were examined, noted to have good hemostasis. The Jack self-retaining retractor was then removed and sheet of ACell placed over the lower uterine segment to help with healing. The anterior wall peritoneum was closed using running stitch of 2-0 Vicryl suture. The abdominal musculature was examined. There was some bleeding on the right side up at the upper margin of the dissection. This was attempted to be controlled with [id number] stitch of 0 Vicryl, but this did seem to be tearing the muscle, so [id number] stitch of 0 chromic suture was used to tie off the small bleeding area and this did control the bleeding. The abdominal musculature was then reapproximated using interrupted stitches of 0 Vicryl suture. The entire musculature was irrigated, suctioned, and examined, and any superficial bleeding spots cauterized with the Bovie. Because of the slight oozing, Tisseel was sprayed over the muscle, particularly in the area where the bleeding had been and at this point, good hemostasis was noted. A powdered ACell sprinkled over the abdominal musculature to help with healing. The fascia was then closed using 2 running stitches of 0 Vicryl suture meeting in the midline. Subcutaneous tissue was irrigated, suctioned, and examined, and any bleeding spots cauterized with the Bovie. Subcutaneous tissue was closed using interrupted stitches of 3-0 Vicryl suture. Skin was reapproximated using skin clips. Electronically Signed By: TONEY BECK MD 05/25/20 0940 PATIENT NAME: DONNA PÉREZ OPERATIVE REPORT DATE OF : [birth year] REPORT #: [id number] PHYSICIAN: TONEY BECK MD PCP: ANNA AGUILLON REPORT IS CONFIDENTIAL AND NOT TO BE RELEASED WITHOUT AUTHORIZATION [address] [place], [place] [address] Signed The patient tolerated the procedure well, went to recovery room in good condition. The sponge, needle, and instrument count correct at end of procedure. Two segments fallopian tubes were sent to Pathology for identification. MD ADRIANNA Caal/DENILSON /[id number] Copies: ~ Electronically Signed By: TONEY BECK MD 05/25/20 0940 PATIENT NAME: DONNA PÉREZ OPERATIVE REPORT DATE OF : [birth year] REPORT #: [id number] PHYSICIAN: TONEY BECK MD PCP: ANNA AGUILLON REPORT IS CONFIDENTIAL AND NOT TO BE RELEASED WITHOUT AUTHORIZATION
== END 2020-05-25 10:55 | disposition home or self-care (01) | DRG 783 ==
LOC: FBC 05-23 05:15
PROVIDERS: ADMIT General Practice; ATTEND General Practice
PROC: 10D00Z0 Extraction of Products of Conception, High, Open Approach (ICD-10-PCS; principal; 2020-05-23 06:45)
PROC: 0UB70ZZ Excision of Bilateral Fallopian Tubes, Open Approach (ICD-10-PCS; 2020-05-23 06:45)
PROC: 0UCC0ZZ Extirpation of Matter from Cervix, Open Approach (ICD-10-PCS; 2020-05-23 06:45)
DX: O34.212 Maternal care for vertical scar from previous cesarean delivery (principal); O60.14X2 Preterm labor third trimester with preterm delivery third trimester, fetus 2; O60.14X1 Preterm labor third trimester with preterm delivery third trimester, fetus 1; O34.33 Maternal care for cervical incompetence, third trimester; O98.32 Other infections with a predominantly sexual mode of transmission complicating childbirth; N85.8 Other specified noninflammatory disorders of uterus; Z37.2 Twins, both liveborn; Z30.2 Encounter for sterilization; O30.043 Twin pregnancy, dichorionic/diamniotic, third trimester; O32.1XX1 Maternal care for breech presentation, fetus 1; O32.1XX2 Maternal care for breech presentation, fetus 2; Z3A.36 36 weeks gestation of pregnancy; O69.81X1 Labor and delivery complicated by cord around neck, without compression, fetus 1; O24.424 Gestational diabetes mellitus in childbirth, insulin controlled; O99.214 Obesity complicating childbirth; E66.9 Obesity, unspecified; O99.52 Diseases of the respiratory system complicating childbirth; J45.909 Unspecified asthma, uncomplicated; O99.02 Anemia complicating childbirth; D64.9 Anemia, unspecified; A60.04 Herpesviral vulvovaginitis; Z79.899 Other long term (current) drug therapy; Z87.891 Personal history of nicotine dependence; Z88.8 Allergy status to other drugs, medicaments and biological substances; Z91.040 Latex allergy status; Z86.19 Personal history of other infectious and parasitic diseases
CPT/HCPCS: 01961; 36415; 85027; A9270; J0690; J1100; J1644; J2001; J2274; J2300; J2370; J2405; J2590; J3010; J7121

== ENCOUNTER 2022-05-21 12:57 | Emergency (ER) | payer OTHER ==
[~2022-05-21] VITALS: Ht 170.2 cm; Wt 134.3 kg
[2022-05-21] MEDS ORDERED: FLUOXETINE HCL20 MG PO (13:45)
[2022-05-21] MEDS ORDERED: SPIRONOLACTONE25 MG PO (13:46)
== END 2022-05-21 16:53 | disposition home or self-care (01) ==
LOC: ED 12:57
DX: F32.9 Major depressive disorder, single episode, unspecified (principal); Z20.822 Contact with and (suspected) exposure to COVID-19; Z91.018 Allergy to other foods; Z88.8 Allergy status to other drugs, medicaments and biological substances; Z91.040 Latex allergy status; Z79.899 Other long term (current) drug therapy
CPT/HCPCS: 36415; 80053; 84443; 84703; 85025; 87502; 99284; C9803; G0480; U0003

== ENCOUNTER 2024-04-19 21:47 | Emergency (ER) | payer SELFPAY ==
[~2024-04-19] VITALS: Ht 170.2 cm; Wt 129.0 kg
[2024-04-19] MEDS ORDERED: ALBUTEROL SULFATE 0.5% 2.5 MG/0.5 ML VIAL INH ONE (22:00)
[2024-04-19] MEDS ORDERED: methylPREDNISolone SOD SUCC 125 MG/2 ML VIAL IV ONE (22:00)
[2024-04-19] MEDS ORDERED: MORPHINE SULFATE 4 MG/ML VIAL IV ONE (22:00)
[2024-04-19] MEDS ORDERED: BUDESONIDE 0.5 MG/2 ML VIAL INH ONE (22:00)
[2024-04-19 22:08] LABS: PH, VENOUS 7.423 (7.31-7.41)
[2024-04-19 22:13] LABS: HEMATOCRIT 44.4 % (35.0-50.0); HEMOGLOBIN 15.1 g/dL (12.0-18.0); MCH 28.3 (27-36); MCV 83.4 fl (81-99); PLATELET COUNT 299 K/uL (140-440); RBC 5.32 M/ul (4.3-5.7); RDW 13.4 (10.5-15.0)
[2024-04-19] MEDS ORDERED: ondansetron HCL 4 MG/2 ML VIAL IV ONE (22:15)
[2024-04-19 22:22] LABS: CORONAVIRUS COVID-19 AG NEGATIVE (NEGATIVE); INFLUENZA A AG NEGATIVE (NEGATIVE); INFLUENZA B AG NEGATIVE (NEGATIVE)
[2024-04-19 22:24] LABS: EOSINOPHILS, MANUAL DIFF 1; LYMPHOCYTES, MANUAL DIFF 20; MONOCYTES, MANUAL DIFF 4; NEUTROPHILS, MANUAL DIFF 75
[2024-04-19 22:26] LABS: ALBUMIN 3.6 g/dL (3.4-5.0); ALBUMIN/GLOBULIN RATIO 0.72 (1.1-2.4); BILIRUBIN, TOTAL 0.4 mg/dL (0.2-1.0); BUN/CREATININE RATIO 12.37 (6.0-28.6); CALCIUM 9.3 mg/dL (8.5-10.1); CREATININE, SERUM 0.97 mg/dL (0.55-1.02); PROTEIN, TOTAL 8.6 g/dL (6.4-8.2)
[2024-04-19] MEDS ORDERED: SODIUM CHLORIDE 0.9% 500 ML IV ONE (22:30)
[2024-04-19] MEDS ORDERED: METOPROLOL TARTRATE 5 MG/5 ML VIAL IV ONE (22:45)
[2024-04-19] MEDS ORDERED: methylPREDNISolone 4 MG HOME.PACK PO ONE (23:30)
[2024-04-19] MEDS ORDERED: AZITHROMYCIN 250 MG HOME.PACK PO ONE (23:30)
[2024-04-19] MEDS ORDERED: ALBUTEROL SULFATE 0.083% 3 ML HOME.PACK INH PRN (23:30)
[2024-04-19 23:36] VITALS: BP 147/81
== END 2024-04-19 23:41 | disposition home or self-care (01) ==
LOC: ED 21:47
PROVIDERS: Family Medicine
DX: J45.901 Unspecified asthma with (acute) exacerbation (principal); E66.9 Obesity, unspecified; Z91.040 Latex allergy status; Z88.8 Allergy status to other drugs, medicaments and biological substances; Z91.018 Allergy to other foods; Z79.899 Other long term (current) drug therapy
CPT/HCPCS: 36415; 71045; 80053; 82803; 85025; 94644; J2270; J2405; J2919; J7040

== ENCOUNTER 2024-04-23 08:19 | Emergency (ER) | payer SELFPAY ==
[~2024-04-23] VITALS: Ht 170.2 cm; Wt 128.4 kg
[~2024-04-23 08:19] MED LIST changes: +ALBUTEROL2.5 MG/3 M INH; +FLUOXETINE HCL20 MG PO; +IPRAT-ALBUT 0.5-3 ML INH; +SPIRONOLACTONE25 MG PO
--- OUTSIDE RECORDS SUMMARY | 2024-04-23 08:26 | XMS ---
PreManage Notification: DONNA PÉREZ Security Private Household Worker Events No recent Security Events currently on file CRITERIA MET - [facility] - 2 Visits in 30 Days CARE PROVIDERS JESUS COSTA [facility] 11/06/2017-Current PHONE: Unknown -[place]- Dentist: System Administration Advisor [facility] PHONE: [phone] JENNA PALOMARES Obstetrics \T\ Gynecology: Maternal \T\ Current [facility] PHONE: [phone] Bertha has no Care Guidelines for this patient. E.D. VISIT COUNT (12 MO.) 2 [facility] TOTAL 2 NOTE: Visits indicate total known visits. ED/UCC VISIT TRACKING (12 MO.) 04/23/2024 08:19 [facility] TYPE: Emergency COMPLAINT: - SHORTNESS OF BREATH 04/19/2024 21:48 [facility] TYPE: Emergency COMPLAINT: - TROUBLE BREATHING DIAGNOSES: - Allergy status to other drugs, medicaments and biological substances - Allergy to other foods - Latex allergy status - Obesity, unspecified - Other prison (current) drug therapy - Shortness of breath - Unspecified asthma with (acute) exacerbation INPATIENT VISIT TRACKING (12 MO.) No inpatient visits to display in this time frame [email or web address]
[2024-04-23] MEDS ORDERED: ALBUTEROL SULFATE 0.5% 2.5 MG/0.5 ML VIAL INH ONE (08:45)
[2024-04-23] MEDS ORDERED: predniSONE 20 MG TAB PO ONE (08:45)
[2024-04-23] MEDS ORDERED: IBUPROFEN 600 MG TAB PO ONE (10:00)
[2024-04-23] MEDS ORDERED: ACETAMINOPHEN 500 MG TAB PO ONE (10:00)
[2024-04-23] MEDS ORDERED: PREDNISONE20 MG PO (10:01)
[2024-04-23] MEDS ORDERED: ALBUTEROL/IPRATROPIUM 3 ML NEB INH ONE (10:45)
[2024-04-23 11:44] VITALS: BP 136/65
== END 2024-04-23 11:44 | disposition home or self-care (01) ==
LOC: ED 08:19
DX: J45.909 Unspecified asthma, uncomplicated (principal); E66.9 Obesity, unspecified; Z88.8 Allergy status to other drugs, medicaments and biological substances; Z91.040 Latex allergy status; Z91.018 Allergy to other foods; Z79.51 Long term (current) use of inhaled steroids; Z79.899 Other long term (current) drug therapy
CPT/HCPCS: 71045; 94640; 99285-25; A9270; J7512